=== PATIENT | male | born 1965 | race Caucasian/White ===

== ENCOUNTER 2019-06-20 16:15 | Emergency (ER) | payer OTHER ==
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
== END 2019-06-20 17:58 | disposition home or self-care (01) ==
LOC: JD.ED 16:15
DX: Z77.098 Contact with and (suspected) exposure to other hazardous, chiefly nonmedicinal, chemicals (principal); I10 Essential (primary) hypertension; Z98.890 Other specified postprocedural states
CPT/HCPCS: 99281; 99283